=== PATIENT | male | born 1960 | race African-American/Black ===

== ENCOUNTER 2025-07-10 12:57 | Emergency (ER) | payer OTHER, SELFPAY ==
[2025-07-10 12:59] VITALS: BP 166/95; PULSE 71; RESP 22; TEMP 36.9; O2SAT 100; BMI 31.4
--- NOTE | 2025-07-10 13:32 | W.ED.EPISTAX ---
HPI - Epistaxis General: Chief complaint: Epistaxis Stated complaint: nosebleed Time Seen by Provider: 07/10/25 13:10 Source: patient Mode of arrival: ambulatory Limitations: no limitations History of Present Illness: Patient is a 64-year-old male who presents to ED today with a complaint of epistaxis. Patient states nosebleed began early this week-Sunday/Sunday and has been intermittent since then. He has had 4 visits to [facility] emergency department. He states they have treated hypertension and applied pressure and Afrin to the nares and bleeding has resolved while there. He has never had to have the nares packed or cauterized. He does tell me he has had blood pressures over the past week with over 200 systolics. This has been better after he was prescribed clonidine that he takes in the middle of the day in addition to his normal blood pressure medications in the morning and evening. Patient is not complaining of a headache. No known injury or trauma to the nose. Blood pressure is 166/95 upon arriving. He is not on anticoagulation. MD complaint: epistaxis Location: right nostril Onset (ago): day(s) Duration: intermittent Associated symptoms: Reports no associated symptoms; Deny fever(s), headache(s), sinus pain or vomiting Treatment prior to arrival: nose pinching, nasal clamp and other (afrin) Related Data Allergies Allergy/AdvReac Type Severity Reaction Status Date / Time No Known Allergies Allergy Verified 07/10/25 13:07 Review of Systems Const: Denies: fever(s), chills, body aches, fatigue or malaise Eyes: Denies: change in vision, blurry vision, photophobia, floaters or seeing flashes ENMT: Reports: epistaxis; Denies: throat pain, uvular edema, enlarged tonsils, odynophagia, ear or mastoid pain, nasal discharge, nasal congestion or sinus pain Card: Denies: chest pain Resp: Denies: dyspnea GI: Denies: nausea or vomiting Neuro: Denies: headache(s) or dizziness Physical Exam Const: COMMON NORMALS: no acute distress, average body habitus, patient oriented x3, no limitations, alert and well nourished GENERAL APPEARANCE: cooperative ORIENTATION/CONSCIOUSNESS: Yes awake, Yes oriented to person, Yes oriented to place and Yes oriented to time HENMT: COMMON NORMALS: EAC's normal NOSE: No nasal polyps present and Epistaxis present (large clot blew from R nare; no active bleeding present) on the right EXTERNAL AUDITORY CANAL: EAC's normal TYMPANIC MEMBRANE: TM abnormal TM laterality: bilateral (bilateral hemotympanum) MOUTH: Normal oral and palatal mucosa present and lip normal THROAT: posterior oropharynx normal and tonsils normal; no uvular edema Resp: COMMON NORMALS: normal respiratory effort and clear to auscultation bilaterally AUSCULTATION: clear to auscultation bilaterally Cardio: COMMON NORMALS: regular rate and regular rhythm RATE: regular rate RHYTHM: regular rhythm Neuro: COMMON NORMALS: patient oriented x3 SENSORIUM/ORIENTATION: Yes alert, Yes oriented to person, Yes oriented to place and Yes oriented to time Course Vital Signs: Vital signs: Vital Signs Temperature 98.4 F 07/10/25 12:59 Pulse Rate 71 07/10/25 12:59 Respiratory Rate 22 H 07/10/25 12:59 Blood Pressure 164/97 07/10/25 14:48 Pulse Oximetry 100 07/10/25 12:59 Oxygen Delivery Me thod Room Air 07/10/25 12:59 MDM - Epistaxis Medical Decision Making Patient is a 64-year-old male here for intermittent epistaxis over the past few days. He does arrive here bleeding from his right nare. A large clot was visualized that he was able to blow out. After this I instilled Afrin into the nare and used a nasal clamp for approximately 15 to 20 minutes. This was then removed and patient was watched with no resuming of epistaxis. He feels comfortable going home. BP during re-examination was 140s/90s but shortly after climbed back to 160s/90s and he requested a clonidine. Did do blood work today as he stated they did not do any on his other 4 visits at [facility]. H/H today is 11.6/36.4 with no comparison. Mild elevations to BUN/Cr which patient is aware of and states are at baseline-follows with nephrology. Coags normal. He was noted to have bilateral tympanum which can be seen with epistaxis due to retrograde blood through eustachian tube. He has had no injury/trauma. No headache. Will place CM referral to get him set up with ENT. Return precautions discussed. Differential Diagnosis Likely anterior epistaxis Medical Records I reviewed the patient's medical records. Lab Data I reviewed the patient's lab results. 07/10/25 13:36 07/10/25 13:36 Laboratory Results WBC 8.11 10^3/uL (3.29-11.43) 07/10/25 13:36 RBC 4.61 10^6/uL (3.85-5.65) 07/10/25 13:36 Hgb 11.60 g/dL (11.27-16.99) 07/10/25 13:36 Hct 36.4 % (37-53) L 07/10/25 13:36 MCV 79.0 fl (82-101) L 07/10/25 13:36 MCH 25.2 pg (27-33) L 07/10/25 13:36 MCHC 31.9 g/dL (30-55) 07/10/25 13:36 RDW 14.9 % (12.1-15.1) 07/10/25 13:36 Plt Count 192 10^3/cmm (157-399) 07/10/25 13:36 MPV 9.8 fL (7.4-10.4) 07/10/25 13:36 Neut % (Auto) 70.6 % 07/10/25 13:36 Lymph % (Auto) 21.3 % 07/10/25 13:36 [place] % (Auto) 5.9 % 07/10/25 13:36 Eos % (Auto) 1.2 % 07/10/25 13:36 Baso % (Auto) 0.6 % 07/10/25 13:36 Neut # (Auto) 5.72 10^3/uL (1.8-7.7) 07/10/25 13:36 Lymph # (Auto) 1.7 10^3/uL (0.8-4.8) 07/10/25 13:36 [place] # (Auto) 0.5 10^3/uL (0.2-0.9) 07/10/25 13:36 Eos # (Auto) 0.1 10^3/uL (0.0-0.8) 07/10/25 13:36 Baso # (Auto) 0.1 10^3/uL (0.0-0.1) 07/10/25 13:36 Nucleated RBC % (auto) 0 % 07/10/25 13:36 Nucleated RBCs # 0.0 /100WBC 07/10/25 13:36 PT 13.10 SECONDS (12.1-14.9) 07/10/25 13:36 INR 0.93 (0.8-1.2) 07/10/25 13:36 APTT 24.5 SECONDS (23.9-36.7) 07/10/25 13:36 Sodium 141 mmol/L (136-145) 07/10/25 13:36 Potassium 4.4 mmol/L (3.5-5.1) 07/10/25 13:36 Chloride 108 mmol/L (98-107) H 07/10/25 13:36 Carbon Dioxide 23 mmol/L (22-29) 07/10/25 13:36 Anion Gap 14.4 (5-19) 07/10/25 13:36 BUN 37 mg/dL (8-23) H 07/10/25 13:36 Creatinine 1.5 mg/dL (0.7-1.2) H 07/10/25 13:36 GFR Calculation 56.7 mL/min (90-130) L 07/10/25 13:36 Glucose 112 mg/dL (65-115) 07/10/25 13:36 Calculated Osmolality 301 mOsm/kg (285-295) H 07/10/25 13:36 Calcium 9.1 mg/dL (8.5-10.5) 07/10/25 13:36 Total Bilirubin 0.5 mg/dL (0.15-1.2) 07/10/25 13:36 AST 18 U/L (0-40) 07/10/25 13:36 ALT 11 U/L (0-41) 07/10/25 13:36 Alkaline Phosphatase 77 U/L (40-130) 07/10/25 13:36 Total Protein 6.9 g/dL (6.6-8.7) 07/10/25 13:36 Albumin 4.0 g/dL (3.5-5.2) 07/10/25 13:36 Globulin 2.9 g/dL (1.3-4.6) 07/10/25 13:36 No radiology studies performed this visit Discharge Plan Discharge Patient Disposition: Home Clinical Impression: Epistaxis Condition: Stable Discharge Orders: Discharge ED (Routine); Ordered 07/10/25 Ordered By: Elda Hinojosa Referrals: Yaya Kendall MD [Primary Care Provider, Family Practice] Patient Instructions: Nosebleed (ED), Epistaxis - Adult, Patient Portal & Christopher Instructions Activity Restrictions/Additional Instructions: As we discussed, I have placed a case management referral to get you set up with ENT for further evaluation of intermittent nosebleeds. We discussed conservative management at home for treatment including removing clots, instilling Afrin, and nasal clamp. If this does not alleviate nosebleed you may need to return to the emergency department for further treatment. Print Language: Wolof Coding Level of Care Code ED Correctional Counselor/Case Manager for Bryan Santiago
[2025-07-10 13:49] LABS: Hematocrit 36.4 % (37-53); Hemoglobin 11.60 g/dL (11.27-16.99); Mean Corpuscular HGB Conc 31.9 g/dL (30-55); Mean Corpuscular Hemoglobin 25.2 pg (27-33); Mean Corpuscular Volume 79.0 fl (82-101); Nucleated Red Blood Cells % 0 %; Platelet Count 192 10^3/cmm (157-399); Red Blood Count 4.61 10^6/uL (3.85-5.65); White Blood Count 8.11 10^3/uL (3.29-11.43)
[2025-07-10 14:00] LABS: Alanine Aminotransferase 11 U/L (0-41); Albumin Level 4.0 g/dL (3.5-5.2); Alkaline Phosphatase 77 U/L (40-130); Anion Gap 14.4 (5-19); Aspartate Amino Transferase 18 U/L (0-40); Blood Urea Nitrogen 37 mg/dL (8-23); Calcium 9.1 mg/dL (8.5-10.5); Carbon Dioxide 23 mmol/L (22-29); Chloride 108 mmol/L (98-107); Globulin 2.9 g/dL (1.3-4.6); Glucose 112 mg/dL (65-115); Osmolality Calculated 301 mOsm/kg (285-295); Potassium 4.4 mmol/L (3.5-5.1); Sodium 141 mmol/L (136-145); Total Protein 6.9 g/dL (6.6-8.7)
[2025-07-10 14:06] LABS: INR 0.93 (0.8-1.2); Partial Thromboplastin Time 24.5 SECONDS (23.9-36.7); Prothrombin Time 13.10 SECONDS (12.1-14.9)
[2025-07-10 14:48] VITALS: BP 164/97
[2025-07-10 15:03] VITALS: BP 119/99; PULSE 71; RESP 16; O2SAT 100
--- NOTE | 2025-07-14 12:53 | DCPLANNER ---
Referral sent to ENT Dr. Hauser's Office
== END 2025-07-10 15:02 | disposition home or self-care (01) ==
PROVIDERS: Emergency Provider Physician Assistant; PCP Family Medicine Geriatric Medicine
DX: R04.0 Epistaxis (principal)
CPT/HCPCS: 36415; 80053; 85025; 85610; 85730; 99283; J9999